=== PATIENT | female | born 1955 | race Caucasian/White ===

== ENCOUNTER 2019-11-13 00:35 | Emergency (ER) | payer MEDICARE, OTHER, SELFPAY ==
--- NOTE | ~2019-11-13 | CT_ITS ---
EXAMINATION: CTA chest PE protocol DATE: 11/13/2019 02:01 INDICATION: Left-sided and midsternal chest pain TECHNIQUE: Computed tomography angiography (CTA) of the chest was performed with 100 mL Omnipaque-350 intravenous contrast timed to evaluate the pulmonary arteries. Coronal maximum intensity projection 3D-reconstructions were created by the technologist. Automated exposure control and iterative reconst ruction technique were employed. Exam dose: 777.68 mGy-cm total exam DLP. COMPARISON: None. FINDINGS: There is diagnostic contrast enhancement of the pulmonary arteries and no evidence of pulmo nary embolism. No thoracic aortic aneurysm or dissection. Normal heart size. No pericardial or pleural effusion. There are calcified left hilar and mediastinal nodes and calcified left upper lobe pulmonary granulom a, consistent with old granulomatous disease. No hilar or mediastinal mass lesion or lymphadenopathy. No pulmonary infiltrate or consolidation. Scattered areas of air trapping throughout the lungs. No pn eumothorax. Small sliding hiatal hernia Diffuse idiopathic skeletal hyperostosis of the thoracic spine. IMPRESSION: No evidence of pulmonary embolism Reviewed, dictated and finalized at [facility]. Reviewed, dictated and finalized at [facility].
--- NOTE | ~2019-11-13 | XR_ITS ---
EXAMINATION: XR chest 2V DATE: 11/13/2019 01:25 INDICATION: Left-sided midsternal chest pain TECHNIQUE: PA and lateral views of the chest were obtained. COMPARISON: Chest radiograph dated 10/07/2010 FINDINGS: The lungs remain clear with no focal airspace opacities, pulmonary edema, pleural effusion or pneumot horax. The cardiomediastinal silhouette is normal. Cholecystectomy clips in the right upper quadrant. IMPRESSION: 1. No acute cardiopulmonary disease. Reviewed, dictated and finalized at [facility].
[2019-11-13 00:33] VITALS: BP 168/91; PULSE 86; RESP 12; TEMP 37.1; O2SAT 95
[2019-11-13 00:46] VITALS: BP 138/83; PULSE 75; PULSE 79; RESP 12; O2SAT 96
--- NOTE | 2019-11-13 00:46 | ECG_ITS ---
Measurements Intervals [place] Rate: 82 P: 37 UT: 172 QRS: 0 QRSD: 117 T: 48 QT: 385 QTc: 452 Interpretive Statements SINUS RHYTHM BASELINE ARTIFACT- I, II, III, AVR, AVL, V6 NORMAL ECG Electronically Signed On 11-13-2019 7:28:09 CDT by Uvaldo Foley D.O.
--- NOTE | 2019-11-13 00:54 | ED.CHESTPAIN ---
HPI - Chest Pain General Chief Complaint: Chest Pain Stated Complaint: CP Time Seen by Provider: 11/13/19 00:41 Source: RN notes reviewed History of Present Illness HPI narrative: Patient presents emergency department from home via EMS for chest pain. Patient states she been having intermittent chest pain over the left side of her chest for the past 4 days. Patient states episodes last approximately 10 minutes and occur approximately 4 times a day. Associated with shortness of breath. Patient states that this evening she is had pain over the left side of her chest since 3 PM. Patient states it feels as if she cannot take a deep breath she notes associated shortness of breath she denies any fevers or chills or abdominal pain. States that nothing makes the pain better or worse. States she took no pain medication for the symptoms tonight. Patient had aspirin by EMS. Patient also received 2 sprays of nitro by EMS with no change in pain as well as morphine Related Data Home Medications Medication Instructions Recorded Confirmed amitriptyline 11/13/19 amlodipine 11/13/19 carvedilol 11/13/19 ergocalciferol (vitamin D2) 11/13/19 pantoprazole PO 11/13/19 prednisone 11/13/19 prochlorperazine maleate 11/13/19 vilazodone [Viibryd] mg 11/13/19 Allergies Allergy/AdvReac Type Severity Reaction Status Date / Time No Known Allergies Allergy Unverified 12/27/15 08:45 Review of Systems Review of Systems: Narrative: APPEARANCE: No acute distress, nontoxic, resting in bed EYES: EOMI HEENT: Normocephalic, atraumatic, OMM RESPIRATORY: No respiratory distress Clear to auscultation bilaterally with no rhonchi wheezing or rales. CARDIOVASCULAR: Regular rate and rhythm without murmurs rubs or gallops. ABDOMINAL: Soft, nontender, nondistended, no rebound or guarding MUSCULOSKELETAl: Moves all extremities. No clubbing, cyanosis or edema. NEURO: Awake and alert. Following commands, speech normal, no focal deficits SKIN:: Warm, dry. No rashes lesions or abrasions PSYCHIATRIC: Normal affect/mood, PMFSH Past Medical History Medical History (Updated 11/13/19 @ 06:09 by Giancarlo George DO) Hypertension Social History Social History (Updated 11/13/19 @ 00:57 by CAL Boyce Smoking status: Never smoker Exam Narrative: Exam Narrative: APPEARANCE: No acute distress, nontoxic, resting in bed EYES: EOMI HEENT: Normocephalic, atraumatic, OMM RESPIRATORY: No respiratory distress Clear to auscultation bilaterally with no rhonchi wheezing or rales. CARDIOVASCULAR: Regular rate and rhythm without murmurs rubs or gallops. Chest: Tender palpation left anterior chest wall no swelling or ecchymosis pain increased with deep inspiration and fly motion of the chest ABDOMINAL: Soft, nondistended, tender palpation epigastric and right upper quadrant left upper quadrant, no tenderness right lower quadrant left lower quadrant MUSCULOSKELETAl: Moves all extremities. No clubbing, cyanosis or edema. NEURO: Awake and alert. Following commands, speech normal, no focal deficits SKIN:: Warm, dry. No rashes lesions or abrasions PSYCHIATRIC: Normal affect/mood, Course Course Emergency Course: Called and discussed with Dr. Greenberg presentation work-up. Discussed CTA results as well as to next troponins. At this time with pain constant for over 12 hours and 2- troponins believe the patient may be discharged home with follow-up as an outpatient Discussed with patient results of workup and diagnosis. Discussed need for follow-up with primary care, proper use of medication, and reasons to return to the emergency department. Patient understands and agrees to current treatment plan Vital Signs Vital signs: Vital Signs Temperature 98.7 F 11/13/19 00:33 Pulse Rate 86 11/13/19 00:33 Respiratory Rate 12 11/13/19 00:33 Blood Pressure 168/91 H 11/13/19 00:33 Pulse Oximetry 95 11/13/19 00:33 Temperature 98.7 F 11/13/19 00:
[2019-11-13 01:10] LABS: Basophils Absolute Auto 0.1 K/mm3 (0.0-0.1); Basophils Percent Auto 0.8 % (0.2-1.2); Eosinophils Absolute Auto 0.2 K/mm3 (0-0.3); Eosinophils Percent Auto 1.1 % (0-4.4); Hematocrit 37.7 % (37.0-47.0); Hemoglobin 12.2 g/dL (12.0-15.0); Immature Granulocyte Absolute 0.13 K/mm3 (0.00-0.031); Lymphocytes Absolute Auto 3.03 K/mm3 (0.9-3.2); Lymphocytes Percent Auto 22.9 % (18.3-44.2); Mean Corpuscular HGB Conc 32.4 g/dl (32-36); Mean Corpuscular Hemoglobin 26.8 pg (26-34); Mean Corpuscular Volume 82.7 fl (80-100); Mean Platelet Volume 9.8 fl (7.4-10.4); Monocytes Percent Auto 7.9 % (2.6-8.5); Neutrophils Absolute Auto 8.8 K/mm3 (1.3-6.7); Neutrophils Percent Auto 66.3 % (45.5-73.1); Platelet Count Result 369 k/mm3 (150-375); Red Blood Count 4.56 M/mm3 (4.2-5.4); Red Cell Distribution Width 14.9 % (11.5-14.5); White Blood Count 13.2 K/mm3 (4.5-10.0)
--- NOTE | 2019-11-13 01:19 | PC.NURSE ---
pt to ct
[2019-11-13 01:20] LABS: Partial Thromboplastin Time 27.6 SECONDS (22.3-36.8); Prothrombin Time 12.4 Seconds (11.1-14.7)
[2019-11-13 01:21] LABS: Blood Urea Nitrogen 11 mg/dL (7-17); Calcium 9.4 mg/dL (8.4-10.2); Carbon Dioxide 23 mmol/L (22-30); Chloride 105 mmol/L (98-107); Estimated Glomerular Filt Rate > 60; Glucose 130 mg/dL (65-105); Potassium 3.7 mmol/L (3.4-5.0); Sodium 135 mmol/L (137-145)
[2019-11-13 01:22] LABS: Alanine Aminotransferase 17 U/L (4-35); Albumin Level 4.7 g/dL (3.5-5.1); Alkaline Phosphatase 93 U/L (38-126); Aspartate Amino Transferase 25 U/L (14-36); Bilirubin,Total 0.3 mg/dL (0.2-1.3); Lipase 92 U/L (23-300)
[2019-11-13 01:23] LABS: D Dimer 0.38 ug/mL (<0.48)
[2019-11-13 01:33] LABS: Troponin I < 0.012 ng/mL (0.000-0.034)
[2019-11-13 01:54] VITALS: BP 141/92; PULSE 103; RESP 14; O2SAT 98
[2019-11-13] MEDS: KETOROLAC 30 MG/ML VIAL (*BKC) IV PUSH (01:54)
[2019-11-13] MEDS: MORPHINE SULFATE 4 MG/ML INJ IV PUSH (02:48)
[2019-11-13 02:51] VITALS: BP 135/64; PULSE 76; RESP 15; O2SAT 94
[2019-11-13 04:25] VITALS: BP 139/71; PULSE 79; RESP 15; O2SAT 98
--- NOTE | 2019-11-13 04:26 | ECG_ITS ---
Measurements Intervals [place] Rate: 78 P: 38 [place]: 172 QRS: 1 QRSD: 104 T: 31 QT: 374 QTc: 426 Interpretive Statements SINUS RHYTHM NORMAL ECG Electronically Signed On 11-13-2019 7:38:07 CDT by Uvaldo Foley D.O.
[2019-11-13 04:37] LABS: Troponin I < 0.012 ng/mL (0.000-0.034)
[2019-11-13 05:48] VITALS: BP 154/68; PULSE 80; RESP 12; O2SAT 96
== END 2019-11-13 06:10 | disposition home or self-care (01) ==
PROVIDERS: Emergency Provider Emergency Medicine; PCP Family Medicine Adolescent Medicine
DX: R07.89 Other chest pain (principal); I10 Essential (primary) hypertension
CPT/HCPCS: 36415; 71046; 71275; 80048; 80076; 83690; 84484; 85025; 85380; 85610; 85730; 93005; 96365; 96375; 99284; A9270; J0131; J1885; J2270; Q9967

== ENCOUNTER 2022-05-17 10:12 | Emergency (ER) | payer MEDICARE, SELFPAY ==
--- NOTE | ~2022-05-17 | CT_ITS ---
EXAMINATION: CT abdomen pelvis wo con DATE: 05/17/2022 11:22 INDICATION: Left lower quadrant abdominal pain TECHNIQUE: Computed tomography (CT) of the abdomen and pelvis was performed without intravenous contr ast. Automated exposure control and iterative reconstruction technique were employed. The dose-length product was 1007.51 mGy-cm. COMPARISON: None FINDINGS: Small calcified nodule at the left lower lobe consistent with old granulomatous disease. Heart size i s normal. No pericardial or pleural effusion. Small sliding-type hiatal hernia. Cholecystectomy clips the gallbladder fossa. Liver, spleen, pancreas, bilateral adrenal glands and kidneys are normal. The re are few diverticula along the sigmoid colon with localized wall thickening and urinary colonic inf lammatory stranding at the proximal sigmoid colon consistent with diverticulitis. No bowel obstructio n. The appendix is not visualized. No pericecal inflammatory change to suggest acute appendicitis. Bl adder is normal. The uterus is not identified and has likely been surgically resected. Negligible lik noreen reactive ascites in the cul-de-sac. No abscess or free intraperitoneal gas. Metallic streak artif act related to a left total hip arthroplasty. This there is a focal region of osteolysis within scler otic margins in the left C7 cervical region. Osseous defect with sclerotic margins and without associ ated mass at the left iliac wing likely representing a bone graft harvest site. Chronic L4 and L5 com pression fractures with change of prior vertebroplasty. There is also methylmethacrylate in the left sacral ala likely for treatment of a chronic insufficiency fracture. IMPRESSION: 1. Radiographically uncomplicated sigmoid diverticulitis. 2. Small sliding-type hiatal hernia. Reviewed, dictated and finalized at location [facility]. LOADER
[2022-05-17 10:31] VITALS: BP 131/77; PULSE 96; RESP 16; TEMP 36.6; O2SAT 98
[2022-05-17 11:08] VITALS: BP 150/83; PULSE 83; RESP 15; O2SAT 100
[2022-05-17] MEDS: SODIUM CHLORIDE 0.9% IV 1,000 ML 999 ML IV CONT (11:16)
--- NOTE | 2022-05-17 11:17 | PC.NURSE ---
Pt to CT scan via stretcher at this time.
[2022-05-17 11:23] LABS: Basophils Percent Auto 0.5 % (0.2-1.2); Eosinophils Absolute Auto 0.1 K/mm3 (0-0.3); Eosinophils Percent Auto 1.5 % (0-4.4); Hematocrit 37.8 % (37.0-47.0); Hemoglobin 12.4 g/dL (12.0-15.0); Immature Granulocyte Absolute 0.01 K/mm3 (0.00-0.031); Immature Granulocyte Percent A 0.1 % (0-0.5); Lymphocytes Absolute Auto 1.83 K/mm3 (0.9-3.2); Lymphocytes Percent Auto 24.2 % (18.3-44.2); Mean Corpuscular HGB Conc 32.8 g/dl (32-36); Mean Corpuscular Hemoglobin 29.7 pg (26-34); Mean Corpuscular Volume 90.6 fl (80-100); Mean Platelet Volume 9.7 fl (7.4-10.4); Monocytes Absolute Auto 0.7 K/mm3 (0.1-0.6); Monocytes Percent Auto 9.3 % (2.6-8.5); Neutrophils Absolute Auto 4.9 K/mm3 (1.3-6.7); Neutrophils Percent Auto 64.4 % (45.5-73.1); Platelet Count Result 194 k/mm3 (150-375); Red Blood Count 4.17 M/mm3 (4.2-5.4); Red Cell Distribution Width 13.1 % (11.5-14.5); White Blood Count 7.6 K/mm3 (4.5-10.0)
[2022-05-17 11:33] LABS: Alanine Aminotransferase 22 U/L (6-35); Albumin Level 4.3 g/dL (3.5-5.1); Alkaline Phosphatase 73 U/L (38-126); Anion Gap 5 mmol/L (8-16); Aspartate Amino Transferase 30 U/L (14-36); Bilirubin,Total 0.7 mg/dL (0.2-1.3); Blood Urea Nitrogen 10 mg/dL (7-17); Calcium 8.8 mg/dL (8.4-10.2); Carbon Dioxide 28 mmol/L (22-30); Chloride 99 mmol/L (98-107); Estimated CRCL calculation 72 ml/min; Estimated Glomerular Filt Rate > 60; Glucose 105 mg/dL (65-110); Lipase 14 U/L (23-300); Potassium 4.3 mmol/L (3.4-5.0); Sodium 132 mmol/L (137-145)
[2022-05-17 12:01] LABS: Appearance Urine Clear (Clear); Bilirubin Urine Negative (Negative); Blood Urine Negative (Negative); Color Urine Yellow (Yellow); Glucose Urine UA Negative (Negative); Ketones Urine Negative (Negative); Leukocyte Esterase Ur Negative LEU/UL (Negative); Nitrate Urine Negative (Negative); Protein Urine Negative (Negative); Urobilinogen Urine 0.2 mg/dL (<2.0); pH Urine 6.5 (5.0-9.0)
[2022-05-17 12:04] LABS: Add Urine Microscopic? NO
--- NOTE | 2022-05-17 12:12 | ED.ABDPAIN ---
HPI - Abdominal Pain General Chief Complaint: Abdominal Pain Stated Complaint: L abd pain Time Seen by Provider: 05/17/22 10:47 History of Present Illness HPI narrative: 67-year-old female history of diverticulitis presents to the emergency room from the urgent care for evaluation of left lower quadrant pain that began yesterday. Denies any dysuria or diarrhea. Denies fevers. Denies nausea. States pain that radiates into her lower back. Has not taking any medications to relieve her symptoms. Related Data Home Medications Medication Instructions Recorded Confirmed amitriptyline 75 mg tablet 11/13/19 amlodipine 10 mg tablet 11/13/19 carvedilol 6.25 mg tablet 11/13/19 ergocalciferol (vitamin D2) 1,250 11/13/19 mcg (50,000 unit) capsule pantoprazole 40 mg tablet,delayed PO 11/13/19 release prednisone 10 mg tablet 11/13/19 prochlorperazine maleate 10 mg 11/13/19 tablet vilazodone 40 mg tablet (Viibryd) mg 11/13/19 Allergies Allergy/AdvReac Type Severity Reaction Status Date / Time No Known Allergies Allergy Verified 05/17/22 11:10 Review of Systems Review of Systems: CONSTITUTIONAL: Denies fever, chills, or sweats. EYES: Denies visual changes, redness, or discharge. ENT: Denies rhinorrhea, congestion, sore throat, or otalgia. CARDIOVASCULAR: Denies chest pain, palpitations, or edema. RESPIRATORY: Denies cough or dyspnea. GASTROINTESTINAL: Reports lower abdominal pain GENITOURINARY: Denies dysuria or hematuria. SKIN: Denies rash or itching. MUSCULOSKELETAL: Denies back pain, joint pain, or myalgia. NEUROLOGIC: Denies headache, numbness, dizziness, or weakness. PSYCHIATRIC: Denies anxiety or depression. [facility] Past Medical History Medical History Hypertension Social History Social History Smoking status: Never smoker Exam Narrative: GENERAL: Well-appearing, well-nourished, no physical limitations, and in no acute distress. HEAD: Normocephalic, atraumatic. EYES: Conjunctivae normal, PERRLA and EOMI. CHEST: Clear to auscultation. No respiratory distress. No wheezes rales or rhonchi. HEART: Regular rate and rhythm. No murmur heard. Normal peripheral pulses. ABDOMEN: Soft, LLQ tenderness, nondistended, normal active bowel sounds. BACK: No CVA tenderness EXTREMITIES: Normal range of motion. No edema. No clubbing or cyanosis SKIN: Warm, dry, no rash. No noted wounds NEURO: No focal deficits. Alert and oriented x3. MAEW. CN's II-XI intact bilaterally, normal gait PSYCH: Cooperative. Normal mood and affect. Course Vital Signs Vital signs: Vital Signs Temperature 36.6 C 05/17/22 10:31 Pulse Rate 96 05/17/22 10:31 Respiratory Rate 16 05/17/22 10:31 Blood Pressure 131/77 05/17/22 10:31 Pulse Oximetry 98 05/17/22 10:31 Oxygen Delivery Room Air 05/17/22 10:31 Temperature 36.6 C 05/17/22 10:31 Pulse Rate 83 05/17/22 11:08 Respiratory Rate 15 05/17/22 11:08 Blood Pressure 150/83 H 05/17/22 11:08 Pulse Oximetry 100 05/17/22 11:08 Oxygen Delivery Room Air 05/17/22 11:08 MDM - Abdominal Pain Lab Data 05/17/22 11:16 05/17/22 11:16 Labs: Lab Results 05/17/22 05/17/22 05/17/22 Range/Units 11:16 11:16 11:53 WBC 7.6 (4.5-10.0) K/mm3 RBC 4.17 L (4.2-5.4) M/mm3 Hgb 12.4 (12.0-15.0) g/dL Hct 37.8 (37.0-47.0) % MCV 90.6 (80-100) fl MCH 29.7 (26-34) pg MCHC 32.8 (32-36) g/dl RDW 13.1 (11.5-14.5) % Plt Count 194 (150-375) k/mm3 MPV 9.7 (7.4-10.4) fl Immature Gran % (Auto) 0.1 (0-0.5) % Neut % (Auto) 64.4 (45.5-73.1) % Lymph % (Auto) 24.2 (18.3-44.2) % [place] % (Auto) 9.3 H (2.6-8.5) % Eos % (Auto) 1.5 (0-4.4) % Baso % (Auto) 0.5 (0.2-1.2) % Lymph # (Auto) 1.83 (0.9-3.2) K/mm3 [place] # (Auto) 0.7 H (0.1-0.6) K/mm3 E
[2022-05-17] MEDS: ONDANSETRON INJ 4 MG/2 ML VIAL IV PUSH (12:20)
[2022-05-17 12:27] VITALS: PULSE 74; RESP 16; O2SAT 97
[2022-05-17 12:35] VITALS: BP 142/78
== END 2022-05-17 12:37 | disposition home or self-care (01) ==
PROVIDERS: Emergency Provider Nurse Practitioner Family; PCP Internal Medicine
DX: K57.32 Diverticulitis of large intestine without perforation or abscess without bleeding (principal); I10 Essential (primary) hypertension; K44.9 Diaphragmatic hernia without obstruction or gangrene
CPT/HCPCS: 36415; 74176; 80053; 81003; 83690; 85025; 96361; 96374; 99284; J2405; J7030

== ENCOUNTER 2023-01-18 12:17 | Emergency (ER) | payer MEDICARE, SELFPAY ==
--- NOTE | ~2023-01-18 | XR_ITS ---
EXAMINATION: XR ribs RT 2V w CXR 2V DATE: 01/18/2023 12:54 INDICATION: Right chest pain. TECHNIQUE: Frontal and lateral views of the chest and 2 views on 3 radiographs of the right ribs were obtained. COMPARISON: Chest 2 views 11/13/2019, CT abdomen and pelvis 05/17/22 FINDINGS: CHEST TWO VIEWS: There is no pneumonia, pleural effusion, or pneumothorax. The heart size is normal. Surgical clips in the right upper quadrant are likely from cholecystectomy. RIGHT RIBS: There is no rib fracture. IMPRESSION: 1. No rib fracture. Reviewed, dictated and finalized at location [facility]. IMPRESSION: 1. No rib fracture.
--- NOTE | ~2023-01-18 | CT_ITS ---
EXAMINATION: CT chest abdomen wo con DATE: 01/18/2023 15:26 INDICATION: Right chest pain. Fall. TECHNIQUE: Computed tomography (CT) of the chest and abdomen was performed without intravenous contra st. Automated exposure control and iterative reconstruction technique were employed. The dose-length product was 733.65 mGy-cm. COMPARISON: CT abdomen pelvis 05/17/22 FINDINGS: CHEST CT: The lungs demonstrate mild atelectasis. There is mild scarring in paraspinal right lower lobe. A calc ified left lung nodule and calcified left hilar and mediastinal lymph nodes are consistent with old g ranulomatous disease. No pleural effusion. The heart size is normal. No pericardial effusion. There i s mild thoracic spondylosis. ABDOMEN CT: The liver is normal. There are changes of cholecystectomy. Calcifications in the spleen are consisten t with old granulomatous disease. The pancreas, adrenal glands, and kidneys are normal. There are no dilated loops of bowel. There are no pathologically enlarged lymph nodes. There is no free intraperit alcala fluid. There are changes of sacroplasty involving left sacral ala. There are changes of vertebr oplasty in L4 and L5. There is mild lumbar spondylosis. IMPRESSION: 1. No acute posttraumatic findings. Reviewed, dictated and finalized at location A.
[2023-01-18 12:32] VITALS: BP 124/77; PULSE 64; RESP 16; TEMP 36.8; O2SAT 99
--- NOTE | 2023-01-18 15:15 | ED.GENADULT ---
HPI - General Adult General Chief complaint: Fall Stated complaint: fall/rib pain Time Seen by Provider: 01/18/23 14:32 History of Present Illness HPI narrative: Marta Ham is a 67 y/o female who presents with reports of falling on stairs while walking up them about 24 hours ago, and comes in with increased severe right lower chest wall pain. She denies hitting her head, no LOC. She was ambulatory after fall, she says the pain to her right lower chest wall interrupted her sleep last night. Related Data Home Medications Medication Instructions Recorded Confirmed amitriptyline 75 mg tablet 11/13/19 amlodipine 10 mg tablet 11/13/19 carvedilol 6.25 mg tablet 11/13/19 ergocalciferol (vitamin D2) 1,250 11/13/19 mcg (50,000 unit) capsule pantoprazole 40 mg tablet,delayed PO 11/13/19 release prednisone 10 mg tablet 11/13/19 prochlorperazine maleate 10 mg 11/13/19 tablet vilazodone 40 mg tablet (Viibryd) mg 11/13/19 Allergies Allergy/AdvReac Type Severity Reaction Status Date / Time No Known Allergies Allergy Verified 05/17/22 11:10 Review of Systems Review of Systems: CONSTITUTIONAL: Denies fever, chills, or sweats. EYES: Denies visual changes, redness, or discharge. ENT: Denies rhinorrhea, congestion, sore throat, or otalgia. CARDIOVASCULAR: complains of severe right lower chest wall pain denies palpitations, or edema. RESPIRATORY: Denies cough or dyspnea. GASTROINTESTINAL: Denies abdominal pain, nausea, vomiting, or diarrhea. GENITOURINARY: Denies dysuria or hematuria. SKIN: Denies rash or itching. MUSCULOSKELETAL: Denies back pain, joint pain, or myalgia. NEUROLOGIC: Denies headache, numbness, dizziness, or weakness. PSYCHIATRIC: Denies anxiety or depression. PMFSH Past Medical History Medical History Hypertension Social History Social History Smoking status: Never smoker Exam Narrative: GENERAL: Well-appearing, well-nourished, and in no acute distress. HEAD: Normocephalic, atraumatic. EYES: PERRLA and EOMI. ENT: Nares clear, no rhinorrhea or epistaxis. Mucous membranes moist. Oropharynx without tonsillar hypertrophy exudate or other lesions. NECK: Supple. No adenopathy or masses. No carotid bruits or JVD CHEST: Clear to auscultation. No respiratory distress. No wheezes rales or rhonchi HEART: Regular rate and rhythm. No murmur heard. Normal peripheral pulses. ABDOMEN: Soft, nontender, nondistended, normal active bowel sounds. EXTREMITIES: Normal range of motion. No edema. SKIN: Warm, dry, no rash. NEURO: No focal deficits. Alert and oriented x3. PSYCH: Normal mood and affect. Course Vital Signs Vital signs: Vital Signs Temperature 36.8 C 01/18/23 12:32 Pulse Rate 64 01/18/23 12:32 Respiratory Rate 16 01/18/23 12:32 Blood Pressure 124/77 01/18/23 12:32 Pulse Oximetry 99 01/18/23 12:32 Temperature 36.8 C 01/18/23 12:32 Pulse Rate 64 01/18/23 12:32 Respiratory Rate 16 01/18/23 12:32 Blood Pressure 124/77 01/18/23 12:32 Pulse Oximetry 99 01/18/23 12:32 Medical Decision Making MDM Narrative Medical decision making narrative: On exam pt is calm, she reports that she had a fall onto her right lower chest wall/ right upper abdomen yesterday She comes in today with continued pain that seems to be interrupting her sleep She denies hitting her head, NO loc No cervical/ thoracic/ lumbar spinal tenderness with palpation lung sounds clear bowel sounds present/ abdomen soft/ non tender with palpation X ray negative for rib fractures/ based on history of trauma , pt is very tender to right lower chest wall with light palpation will check a CT to ensure no fractures/ internal damage Discussed test with collaborating attending who recommends CT without contrast CT is negative pt reports some improvement with the anup
[2023-01-18] MEDS: HYDROcodone/acetaminophen (*CRX) 5-325 MG TABLET 1 TAB PO (16:01)
[2023-01-18] MEDS: CYCLOBENZAPRINE HCL 10 MG TABLET PO (16:02)
== END 2023-01-18 17:35 | disposition home or self-care (01) ==
PROVIDERS: Emergency Provider Nurse Practitioner Family; PCP Internal Medicine
DX: R07.89 Other chest pain (principal); I10 Essential (primary) hypertension; W10.9XXA Fall (on) (from) unspecified stairs and steps, initial encounter
CPT/HCPCS: 71046; 71100; 71250; 74150; 99284; A9270